=== PATIENT | female | born 2000 | race Caucasian/White ===

== ENCOUNTER → 2022-08-02 10:10 | Outpatient (BNVA) | payer OTHER, SELFPAY | PROVIDERS: Family Provider Nurse Practitioner Family; PCP Nurse Practitioner Family; Visit Provider Internal Medicine | DX: D35.2 Benign neoplasm of pituitary gland (principal); R79.89 Other specified abnormal findings of blood chemistry | CPT/HCPCS: 36415; 82024; 82533; 84305; 84439 ==

== ENCOUNTER 2022-08-10 11:52 | Outpatient (CLI) | payer OTHER, SELFPAY ==
[2022-08-10 13:19] LABS: Urine Creatinine 164 mg/dL (28-217)
[2022-08-10 14:36] LABS: Total Volume Urine 400 ml
[2022-08-17 10:56] LABS: Free Cortisol Urine 30.3 mcg/24 h (4.0-50.0); Total Urine 400 mL; Urine Creatinine 0.62 g/24 h (0.50-2.15)
== END 2022-08-10 11:53 | disposition home or self-care (01) ==
LOC: LAB 11:54
PROVIDERS: PCP Nurse Practitioner Family; Visit Provider Internal Medicine
DX: R79.89 Other specified abnormal findings of blood chemistry (principal)
CPT/HCPCS: 82530; 82570

== ENCOUNTER 2022-11-07 10:18 | Outpatient (CLI) | payer OTHER, SELFPAY ==
--- NOTE | 2022-11-07 11:00 | MR_ITS ---
WS: [id number] MRI HEAD WITHOUT AND WITH CONTRAST WITH PITUITARY PROTOCOL. TECHNIQUE: Sagittal T1, T2 axial, T2 axial FLAIR, axial susceptibility weighted imaging, axial diffus ion weighted images, and coronal T2 images were obtained. Pre and post-T1 axial and post T1 coronal i mages. ADC and FSPGR images. Post gadolinium images were obtained with pituitary protocol. High-resol ution pituitary imaging. CLINICAL INFORMATION: Pituitary Adenoma COMPARISON: CT head July 29, 2022 FINDINGS: No evidence of restricted diffusion to suggest acute ischemia. Ventricular system and basal cisterns are patent. No suspicious intracranial signal abnormalities. Normal ayala-white differentiation. Purnima l posterior fossa. Normal vascular flow voids at the skull base. No extra-axial fluid collections. No evidence of mass or mass effect. Mild mucosal thickening in the ethmoid air cells. Paranasal sinuses are well aerated. No hemosiderin on the susceptibly weighted images. Normal optic chiasm and pituitary infundibulum. Hy poenhancing midline pituitary lesion suspicious for microadenoma measuring 2.3 mm. Otherwise normal h omogeneous pituitary enhancement. No suprasellar lesions. Normal cavernous sinuses and Meckel's cave. No abnormal intracranial enhancement. Normal dural venous sinuses. MR/MR pituitary wo/w con* [id number] IMPRESSION: 1. Hypoenhancing midline pituitary lesion measuring 2.3 mm likely represents p ituitary microadenoma. Otherwise normal pituitary enhancement. Recommend correl ation with pituitary function studies. 2. No suprasellar lesions. 3. Normal optic chiasm and pituitary infundibulum. 4. No other suspicious findings.
[2022-11-07] MEDS: gadobenate dimeglumine 20 mL vial IV (11:20)
== END 2022-11-07 10:19 | disposition home or self-care (01) ==
LOC: RAD 10:18
PROVIDERS: PCP Nurse Practitioner Family; Visit Provider Internal Medicine
DX: D35.2 Benign neoplasm of pituitary gland (principal)
CPT/HCPCS: 70553; A9577

== ENCOUNTER → 2023-01-30 09:30 | Outpatient (BNVA) | payer OTHER, SELFPAY | PROVIDERS: PCP Nurse Practitioner Family; Visit Provider Internal Medicine | DX: D35.2 Benign neoplasm of pituitary gland (principal); R79.89 Other specified abnormal findings of blood chemistry | CPT/HCPCS: 36415; 80061; 83036; 84146; 84439; 84443 ==

== ENCOUNTER → 2023-05-02 11:26 | Outpatient (BNVA) | payer OTHER, SELFPAY | PROVIDERS: PCP Nurse Practitioner Family; Visit Provider Internal Medicine | DX: D35.2 Benign neoplasm of pituitary gland (principal); R79.89 Other specified abnormal findings of blood chemistry | CPT/HCPCS: 36415; 84146; 99214 ==

== ENCOUNTER → 2023-07-30 11:24 | Outpatient (BNVA) | payer OTHER, SELFPAY | PROVIDERS: PCP Nurse Practitioner Family; Visit Provider Internal Medicine | DX: R79.89 Other specified abnormal findings of blood chemistry (principal); D35.2 Benign neoplasm of pituitary gland | CPT/HCPCS: 36415; 83690; 84146; 99214 ==

== ENCOUNTER → 2023-08-22 09:30 | Outpatient (BNVA) | payer OTHER, SELFPAY | PROVIDERS: PCP Nurse Practitioner Family; Visit Provider Internal Medicine | DX: D35.2 Benign neoplasm of pituitary gland (principal); R79.89 Other specified abnormal findings of blood chemistry; K29.70 Gastritis, unspecified, without bleeding; E66.9 Obesity, unspecified; Z68.31 Body mass index [BMI] 31.0-31.9, adult | CPT/HCPCS: 99214 ==

== ENCOUNTER → 2023-10-23 10:04 | Outpatient (BNVA) | payer OTHER, SELFPAY | PROVIDERS: PCP Nurse Practitioner Family; Visit Provider Internal Medicine | DX: D35.2 Benign neoplasm of pituitary gland (principal); R79.89 Other specified abnormal findings of blood chemistry; K29.70 Gastritis, unspecified, without bleeding; E66.9 Obesity, unspecified; Z68.29 Body mass index [BMI] 29.0-29.9, adult | CPT/HCPCS: 99214 ==

== ENCOUNTER 2023-11-23 10:41 | Outpatient (CLI) | payer OTHER, SELFPAY ==
--- NOTE | 2023-11-23 11:00 | MR_ITS ---
WS: [id number] MRI HEAD WITHOUT AND WITH GADOLINIUM ENHANCEMENT WITH PITUITARY PROTOCOL TECHNIQUE: Sagittal T1, T2 axial, T2 axial FLAIR, axial susceptibility weighted imaging, axial diffus ion weighted images, and coronal T2 images were obtained. Pre and post-T1 axial and post T1 coronal i mages. ADC and FSPGR images. Post gadolinium imaging was obtained with attention to the pituitary. CLINICAL INFORMATION: pituitary adenoma COMPARISON: MRI 11/07/2022 FINDINGS: No evidence of restricted diffusion to suggest acute ischemia. Ventricular system and basal cisterns are patent. Normal posterior fossa. Normal vascular flow voids at the skull base. No extra-axial flui d collections. No evidence of mass or mass effect. Paranasal sinuses and mastoid air cells are well a erated. No suspicious intracranial signal abnormalities. No hemosiderin on the susceptibly weighted i mages. Normal optic chiasm and pituitary infundibulum. Cavernous sinuses and Meckel's cave normal in appeara nce. No evidence of suprasellar mass. Tiny focus of hypoenhancement in the midline pituitary measurin g 2 to 3 mm unchanged from previous. This likely represents a tiny microadenoma or pars intermedia cy st. Recommend correlation with pituitary function studies. No other suspicious findings. IMPRESSION: 1. Stable hypoenhancing 2 to 3 mm midline pituitary lesion suspicious for microadenoma versus pars i ntermedia cyst. Recommend correlation with pituitary function studies. 2. No evidence of suprasellar mass. Normal optic chiasm and pituitary infundibulum. 3. No other suspicious intracranial signal abnormalities.
[2023-11-23] MEDS: gadobenate dimeglumine 20 mL vial IV (11:33)
== END 2023-11-23 10:42 | disposition home or self-care (01) ==
LOC: RAD 10:42
PROVIDERS: PCP Nurse Practitioner Family; Visit Provider Internal Medicine
DX: D35.2 Benign neoplasm of pituitary gland (principal); R79.89 Other specified abnormal findings of blood chemistry
CPT/HCPCS: 70553; A9577

== ENCOUNTER → 2024-02-14 09:53 | Outpatient (BNVA) | payer OTHER, SELFPAY | PROVIDERS: PCP Nurse Practitioner Family; Visit Provider Internal Medicine | DX: D35.2 Benign neoplasm of pituitary gland (principal); R79.89 Other specified abnormal findings of blood chemistry; K29.70 Gastritis, unspecified, without bleeding; E66.9 Obesity, unspecified; Z68.29 Body mass index [BMI] 29.0-29.9, adult | CPT/HCPCS: 99214 ==

== ENCOUNTER → 2024-04-09 08:45 | Outpatient (BNVA) | payer OTHER, SELFPAY | PROVIDERS: PCP Nurse Practitioner Family; Visit Provider Internal Medicine | DX: D35.2 Benign neoplasm of pituitary gland (principal); R79.89 Other specified abnormal findings of blood chemistry; K29.70 Gastritis, unspecified, without bleeding; E66.9 Obesity, unspecified; Z68.26 Body mass index [BMI] 26.0-26.9, adult | CPT/HCPCS: 36415; 82533; 84146; 84305; 99213; 99214 ==

== ENCOUNTER → 2024-07-14 10:20 | Outpatient (BNVA) | payer OTHER, SELFPAY | PROVIDERS: PCP Nurse Practitioner Family; Visit Provider Internal Medicine | DX: D35.2 Benign neoplasm of pituitary gland (principal); R79.89 Other specified abnormal findings of blood chemistry | CPT/HCPCS: 36415; 84146 ==

== ENCOUNTER → 2025-01-16 11:00 | Outpatient (BNVA) | payer OTHER, SELFPAY | PROVIDERS: PCP Nurse Practitioner Family; Visit Provider Internal Medicine | DX: N92.6 Irregular menstruation, unspecified (principal); K29.70 Gastritis, unspecified, without bleeding; R79.89 Other specified abnormal findings of blood chemistry; D35.2 Benign neoplasm of pituitary gland | CPT/HCPCS: 36415; 84146 ==

== ENCOUNTER 2025-01-30 14:16 | Outpatient (CLI) | payer OTHER, SELFPAY ==
[2025-01-30 14:56] LABS: HCG Quantitative < 1.00 mIU/mL
== END 2025-01-30 14:17 | disposition home or self-care (01) ==
LOC: LAB 14:18
PROVIDERS: PCP Nurse Practitioner Family; Visit Provider Internal Medicine
DX: N92.6 Irregular menstruation, unspecified (principal); K29.70 Gastritis, unspecified, without bleeding; R79.89 Other specified abnormal findings of blood chemistry; D35.2 Benign neoplasm of pituitary gland
CPT/HCPCS: 36415; 84702

== ENCOUNTER → 2025-08-21 11:26 | Outpatient (BNVA) | payer OTHER, SELFPAY | PROVIDERS: PCP Nurse Practitioner Family; Visit Provider Internal Medicine | DX: D35.2 Benign neoplasm of pituitary gland (principal); R79.89 Other specified abnormal findings of blood chemistry; N92.6 Irregular menstruation, unspecified | CPT/HCPCS: 84146; 84439; 84443; 84702 ==